=== PATIENT | female | born 1945 ===

== ENCOUNTER 2017-08-08 23:20 | Emergency (ER) | payer MEDICARE ==
[2017-08-08 23:33] VITALS: BP 162/83; PULSE 90; RESP 20; TEMP 98; O2SAT 100
--- NOTE | 2017-08-09 00:23 | C.PDOC ---
History Of Present Illness 71 year old female presents to the ER with a complaint of facial pain and right hand pain after she missed a step going down the stairs and fell forward on her face, sustaining a bruise to the mid forehead and nose. Denies LOC, headache, or vomiting. Time Seen by Provider: 08/08/17 23:46 Chief Complaint (Nursing): Abnormal Skin Integrity History Per: Patient History/Exam Limitations: no limitations Onset/Duration Of Symptoms: Hrs Current Symptoms Are (Timing): Still Present Exacerbating Factor(s): Strenuous Use Of Affected Area Recent travel outside of the [place]: No Past Medical History Reviewed: Historical Data, Nursing Documentation, Vital Signs Vital Signs: Last Vital Signs Temp 98 F 08/08/17 23:29 Pulse 90 08/08/17 23:29 Resp 20 08/08/17 23:29 BP 162/83 H 08/08/17 23:29 Pulse Ox 100 08/09/17 03:48 - Medical History PMH: Arthritis Family History: States: Unknown Family Hx - Social History Hx Alcohol Use: No Hx Substance Use: No - Immunization History Hx Tetanus Toxoid Vaccination: No Hx Influenza Vaccination: No Hx Pneumococcal Vaccination: No Review Of Systems ENT: Positive for: Nose Pain Gastrointestinal: Negative for: Vomiting Musculoskeletal: Positive for: Hand Pain Neurological: Negative for: Headache, Other (LOC) Physical Exam - Physical Exam Appears: Non-toxic Skin: Warm, Dry Head: Normacephalic, Other (Contusion to mid forehead, no facial bone tenderness ) Eye(s): bilateral: Normal Inspection, PERRL, EOMI Nose: No Epistaxis, No Deformity, Other (Erythema to nasal area) Neck: Normal, No Midline Cervical Tenderness, No Paracervical Tenderness, No Step Off Deformity, Supple Chest: No Tenderness Extremity: Normal ROM, Tenderness (To palmar aspect of right thenar eminence. No snuffbox tenderness.), Capillary Refill (<2 seconds), No Deformity, No Swelling, Other (Right wrist tenderness on movement,no tenderness on palpation, no snuffbox tenderness) Pulses: Left Radial: Normal, Right Radial: Normal Neurological/Psych: Oriented x3, Normal Speech, Normal Motor, Normal Sensation ED Course And Treatment O2 Sat by Pulse Oximetry: 100 (room air) Pulse Ox Interpretation: Normal - Other Rad right hand x-ray X-Ray: Interpreted by Me, Viewed By Me Interpretation: Questionable partially avulsed fracture of distal radius. Fingers with moderate arthritic changes. right wrist x-ray X-Ray: Interpreted by Me, Viewed By Me Interpretation: Questionable partially avulsed fracture of distal radius. Fingers with moderate arthritic changes. Progress Note: Tylenol administered for pain. Right wrist and hand x-rays ordered, results were positive for a questionable partially avulsed fracture of the distal radius. Right wrist was stablized with splint for support by RN, x- ray results discussed with patient. I discussed the risk (radiation) and benefit (finding a problem needing surgery) with the patient. The patient is acting normally and has a normal neurological exam. The likelihood of finding a lesion needing intervention on the CT scan is extremely low. Patient agrees that at this time no CT scan will be done. Patient stable for discharge, advised to follow up with PMD for further evaluation, if there is any change or new concern, the patient will return to the ED for further evaluation. Patient understands and agrees with plan. 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 - Scribe Statement The provider has reviewed the documentation as recorded by the Scribe Nikhil Lai All medical record entries made by the [place] were at my direction and personally dictated by me. I have reviewed the chart and agree that the record accurately reflects my personal performance of the history, physical exam, medical decision making, and the department course for this patient. I have also personally directed, reviewed, and agree with the discharge instructions and disposition.
--- NOTE | 2017-08-09 08:31 | RAD ---
PROCEDURE: Right Hand Radiographs. HISTORY: R/O FX POST FALL COMPARISON: None. FINDINGS: BONES: Normal. No fracture. JOINTS: At there is osteoarthritis involving the 1st interphalangeal joint and the 2nd and 3rd distal interphalangeal joint. Remaining joint spaces are preserved. There are no articular erosions. SOFT TISSUES: Normal. OTHER FINDINGS: None. 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
--- NOTE | 2017-08-09 08:33 | RAD ---
PROCEDURE: Right Wrist Radiographs. HISTORY: R/O FX POST FALL COMPARISON: None. FINDINGS: BONES: No acute fracture. There is smooth rounded calcific densities seen adjacent to the tip of the ulnar styloid process only on 1 of multiple views. Uncertain significance. The scaphoid appears intact. JOINTS: Normal carpal alignment is maintained. SOFT TISSUES: Normal. OTHER FINDINGS: None. IMPRESSION: No acute fracture.
== END 2017-08-09 00:28 | disposition home or self-care (01) ==
LOC: C.ER 23:20
DX: S00.83XA Contusion of other part of head, initial encounter (principal); S60.221A Contusion of right hand, initial encounter; W10.9XXA Fall (on) (from) unspecified stairs and steps, initial encounter

== ENCOUNTER 2018-05-21 16:50 | Emergency (ER) | payer OTHER, MEDICARE ==
[2018-05-21 17:09] VITALS: BMI 27.0
--- NOTE | 2018-05-21 18:29 | C.PDOC ---
History Of Present Illness Pt states that she fell while reaching for an item on a rack at a store today. Denies head injury or LOC. - HPI Time Seen by Provider: 05/21/18 17:18 Chief Complaint (Nursing): Trauma History Per: Patient, Family Injury Occurred (Timing): Just Before Arrival Location Of Injury: Right: Chest (lateral), Hand, Left: Ankle Severity: Moderate Additional History Per: Prior Records Past Medical History Reviewed: Historical Data, Nursing Documentation, Vital Signs Vital Signs: Last Vital Signs Temp 98.5 F 05/21/18 17:09 Pulse 86 05/21/18 17:09 Resp 17 05/21/18 17:09 BP 165/82 H 05/21/18 17:09 Pulse Ox 100 05/21/18 17:09 - Medical History PMH: Arthritis Family History: States: Unknown Family Hx - Social History Hx Alcohol Use: No Hx Substance Use: No - Immunization History Hx Tetanus Toxoid Vaccination: No Hx Influenza Vaccination: Yes (2018) Hx Pneumococcal Vaccination: No Review Of Systems Except As Marked, All Systems Reviewed And Found Negative. Constitutional: Negative for: Fever, Weakness Cardiovascular: Negative for: Chest Pain Respiratory: Negative for: Shortness of Breath, Hemoptysis Gastrointestinal: Negative for: Vomiting, Abdominal Pain Musculoskeletal: Positive for: Back Pain (right upper), Hand Pain (right). Negative for: Neck Pain Skin: Negative for: Rash Neurological: Negative for: Weakness, Numbness, Seizures, Altered Mental Status, Headache Physical Exam - Physical Exam Appears: Non-toxic, No Acute Distress Skin: Normal Color, Warm, Dry, No Rash Head: Atraumatic, Normacephalic Eye(s): bilateral: PERRL, EOMI Neck: Normal ROM, No Midline Cervical Tenderness, No Step Off Deformity, Supple Chest: Symmetrical, No Deformity, No Ecchymosis, No Subcutaneous Emphysema Cardiovascular: Rhythm Regular Respiratory: Normal Breath Sounds, No Accessory Muscle Use Gastrointestinal/Abdominal: Soft, No Tenderness Back: No CVA Tenderness, No Vertebral Tenderness, Paraspinal Tenderness (right upper) Extremity: Normal ROM, Tenderness (Thenar area of right hand. Lateral aspect of left ankle.), Capillary Refill (wnl), No Deformity Pulses: Right Radial: Normal, Left Dorsalis Pedis: Normal Neurological/Psych: Oriented x3, Normal Motor, Normal Sensation ED Course And Treatment O2 Sat by Pulse Oximetry: 100 Pulse Ox Interpretation: Normal - Radiology Nexus Criteria: Negative - Other Rad Right rib series X-Ray: Interpreted by Me, Viewed By Me Interpretation: No displaced rib fracture. No PTX. Right hand x-rays X-Ray: Interpreted by Me, Viewed By Me Interpretation: No acute fx. Left ankle x-rays X-Ray: Interpreted by Me, Viewed By Me Interpretation: No acute fx. Reassessment Condition: Improved Disposition Counseled Patient/Family Regarding: Studies Performed, Diagnosis, Need For Followup, Rx Given - Disposition Referrals: Nelson Sheikh MD [Medical Doctor] - Disposition: HOME/ ROUTINE Disposition Time: 18:37 Condition: STABLE Additional Instructions: Follow up with your doctor. Return to the ER if you develop shortness of breath, chest pain, weakness, numbness, redness, swelling, worsening of symptoms or if you have any other concerns. Prescriptions: Naproxen 375 mg PO BID PRN #20 tablet PRN Reason: Pain, Moderate (4-7) Instructions: Bruised Rib (DC), Preventing Falls in the Older Adult Forms: [facility] (Bhutanese) - Clinical Impression Clinical Impression: Contusion of rib on right side, Contusion of right hand, Contusion of left ankle, Fall
[2018-05-21 19:25] VITALS: BP 163/77; PULSE 81; RESP 18; TEMP 98.2; O2SAT 99
--- NOTE | 2018-05-22 08:15 | RAD ---
PROCEDURE: Right Hand Radiographs. HISTORY: right proximal palm/thumb pain s/p fall COMPARISON: Right hand radiographs 08/08/2017. FINDINGS: BONES: No acute fracture or destructive bony lesion identified. Diffuse osteopenia suggests osteoporosis. JOINTS: No subluxation or dislocation. Degenerative cortical sclerosis appreciate throughout the joints of the hand and wrist. SOFT TISSUES: Normal. OTHER FINDINGS: None. IMPRESSION: No acute fracture dislocation right hand which appears stable in the interval compared to 08/08/2017 radiographs. Mild degenerative joint disease seen throughout the right hand.
--- NOTE | 2018-05-22 08:18 | RAD ---
Date of service: 05/21/2018 PROCEDURE: Left Ankle Radiographs. HISTORY: lateral aspect pain s/p fall today COMPARISON: None available. FINDINGS: BONES: No acute fracture or destructive bony lesion identified. Accessory ossicle or prior peripherally corticated chronic fracture fragment is seen anterior to the tibiotalar joint. Diffuse osteopenia suggests osteoporosis. JOINTS: Degenerative cortical sclerosis appreciate the tibiotalar joint as well as talonavicular joints.. Ankle mortise maintained. Talar dome intact. SOFT TISSUES: Normal. OTHER FINDINGS: None. IMPRESSION: No acute fracture or dislocation left ankle. Degenerative changes as discussed above.
--- NOTE | 2018-05-22 08:18 | RAD ---
Date of service: 05/21/2018 PROCEDURE: Radiographs of the Chest and Right Ribs. HISTORY: Right posterior/lateral chest pain s/p fall COMPARISON: None available. TECHNIQUE: Frontal radiograph of the chest and multiple oblique radiographs of the right ribs were obtained. FINDINGS: RIGHT RIBS: No fracture or focal lesion visualized. LUNGS: Clear. PLEURA: No pneumothorax or pleural fluid. CARDIOVASCULAR: Normal cardiac size. No pulmonary vascular congestion. No aortic atherosclerotic calcification present OTHER FINDINGS: None. IMPRESSION: Unremarkable radiographs of the chest and right ribs. No right rib fracture.
== END 2018-05-21 19:24 | disposition home or self-care (01) ==
LOC: C.ER 16:50
DX: S90.02XA Contusion of left ankle, initial encounter (principal); S60.221A Contusion of right hand, initial encounter; S20.211A Contusion of right front wall of thorax, initial encounter; W19.XXXA Unspecified fall, initial encounter; Y92.512 Supermarket, store or market as the place of occurrence of the external cause